=== PATIENT | female | born 1955 | race Caucasian/White ===

== ENCOUNTER 2017-01-29 16:47 | Emergency (ER) ==
[2017-01-29] MEDS ORDERED: DILAUDID 1 MG/ML SYRINGE IM STA ×2 (16:48→17:30)
[2017-01-29] MEDS ORDERED: PHENERGAN 25 MG/ML VIAL IM STA (16:49)
[2017-01-29 17:13] VITALS: BP 134/78; TEMP 97.5; BMI 29.9
[2017-01-29] MEDS ORDERED: ATIVAN IM STA (17:19)
--- NOTE | 2017-01-29 17:43 | ED.PDOC ---
General ED Provider: Dr. MAURO MEDLEY Chief Complaint: Non-specific Complaint Stated Complaint: HISTORY OF TRIGAMINAL NEUROALGIA Time Seen by Physician: 17:00 (HAS THE SAME PAIN BEFORE ) Mode of Arrival: Walk-In Information Source: Patient Exam Limitations: No limitations Primary Care Provider: LORETA TERRELL Nursing and Triage Documentation Reviewed and Agree: Yes Neurological Complaint Exam - Weakness Complaint/Exam Last Known Well: LEFT SIDED JAW PAIN Onset: Sudden Duration: THIS AFTERNOON Symptoms Are: Still present Timing: Constant Episodes Lasting: Hours Initial Severity: Severe Current Severity: Severe Aggravating: Reports: None Alleviating: Reports: None Associated Signs and Symptoms: Denies: Nausea, Vomiting, Diaphoresis, Tinnitus, Chest pain, Short of air, Palpitations, Unsteady gait, GI blood loss, Visual changes, Decreased oral intake, Change in medication, Change in diet, OTC meds, Loss of balance Related History: Similar episode Cardiac Risk Factors: Reports: Hypertension, Diabetes CVA Risk Factors: Reports: Diabetes, Hypertension JVD Present: No Carotid Bruit Present: No Glascow Coma Scale (see protocol): 15 Nystagmus Present: No Gag Reflex Present: No Meningeal Signs Positive: No Focal Weakness: Present: None Focal Sensory Loss: Present: None Gait: Normal Review of Systems - Review Of Systems Constitutional: Reports: No symptoms Eyes: Reports: No symptoms Ears, Nose, Mouth, Throat: Reports: Mouth pain (LEFT JAW PAIN) Respiratory: Reports: No symptoms Cardiac: Reports: No symptoms GI: Reports: No symptoms : Reports: No symptoms Musculoskeletal: Reports: No symptoms Skin: Reports: No symptoms Neurological: Reports: No symptoms Endocrine: Reports: No symptoms Hematologic/Lymphatic: Reports: No symptoms All Other Systems: Reviewed and Negative Past Medical History - Past Medical History Previously Healthy: No Endocrine: Reports: DM 2, Dyslipidemia Cardiovascular: Reports: None Respiratory: Reports: None Hematological: Reports: None Gastrointestinal: Reports: None Genitourinary: Reports: None Neuro/Psych: Reports: None Musculoskeletal: Reports: None Cancer: Reports: None Last Menstrual Period: none - Surgical History General Surgical History: Reports: None - Family History Family History: Reports: None - Social History Smoking Status: Current every day smoker Hx Substance Use: No Alcohol Screening: None Physical Exam - Physical Exam Appearance: Well-appearing, No pain distress, Well-nourished Eyes: VANGIE, EOMI, Conjunctiva clear ENT: Ears normal, Nose normal, Oropharynx normal Respiratory: Airway patent, Breath sounds clear, Breath sounds equal, Respirations nonlabored Cardiovascular: RRR, Pulses normal, No rub, No murmur GI/: Soft, Nontender, No masses, Bowel sounds normal, No Organomegaly Musculoskeletal: Normal strength, ROM intact, No edema, No calf tenderness Skin: Warm, Dry, Normal color Neurological: Sensation intact, Motor intact, Reflexes intact, Cranial nerves intact, Alert, Oriented Psychiatric: Affect appropriate, Mood appropriate Critical Care Note - Critical Care Note Total Time (mins): 0 Course - Course Orders, Labs, Meds: Orders Category Date Time Status Hydromorphone HCl [Dilaudid 1 mg/ml Syringe] MEDS 01/29/17 16:48 Discontinued 1 mg IM ONCE STA Hydromorphone HCl [Dilaudid 1 mg/ml Syringe] MEDS 01/29/17 17:30 Discontinued 1 mg IM ONCE STA Lorazepam Inj [Ativan] MEDS 01/29/17 17:19 Discontinued 1 mg IM ONCE STA Promethazine HCl [Phenergan 25 mg/ml Vial] MEDS 01/29/17 16:49 Discontinued 25 mg IM ONCE STA Medications Discontinued Medications Generic Name Dose Route Start Last Admin Trade Name Freq PRN Reason Stop Dose Admin Hydromorphone HCl 1 mg 01/29/17 16:48 01/29/17 16:59 Dilaudid 1 Mg/Ml Syringe IM 01/29/17 16:49 1 mg ONCE STA Administration Hydromorphone HCl 1 mg 01/29/17 17:30 01/29/17 17:35 Dilaudid 1 Mg/Ml Syringe IM 01/29/17 17:31 1 mg ONCE STA Administration Lorazepam 1 mg 01/29/17 17:19 01/29/17 17:38 Ativan IM 01/29/17 17:20 Not Given ONCE STA Promethazine HCl 25 mg 01/29/17 16:49 01/29/17 17:00 Phenergan 25 Mg/Ml Vial IM 01/29/17 16:50 25 mg ONCE STA Administration Vital Signs: Temp Pulse Resp BP Pulse Ox 01/29/17 16:47 97.5 F L 120 H 20 134/78 95 Departure - Departure Time of Disposition: 18:00 Disposition: HOME SELF-CARE 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 Instructions: Trigeminal Neuralgia (ED), Atypical Facial Pain (ED) Condition: Good Pt referred to PMD for follow-up: No Allergies/Adverse Reactions: Allergies metoclopramide HCl [From Reglan] Adverse Reaction (Verified 01/29/17 16:54) ondansetron HCl [From Zofran (as hydrochloride)] Adverse Reaction (Verified 05/10 16:54) Penicillins Adverse Reaction (Verified 01/29/17 16:54) prochlorperazine edisylate [From Compazine] Adverse Reaction (Verified 01/29/17 16:54) prochlorperazine maleate [From Compazine] Adverse Reaction (Verified 01/29/17 16 :54) [id number] Reductase Inhibitor Adverse Reaction (Verified 01/29/17 16:54) Home Medications: Ambulatory Orders Alprazolam [Xanax] 1 mg PO BID PRN 02/05/14 Duloxetine HCl [Cymbalta] 60 mg PO DAILY 02/05/14 Esomeprazole Magnesium [Nexium] 40 mg PO DAILY 02/05/14 Fenofibric Acid (Choline) [Trilipix] 135 mg PO DAILY 02/05/14 Hydrocodone Bit/Acetaminophen [Laurens 7.5-325] 1 tab PO TID PRN 02/05/14 Lisinopril [Zestril] 5 mg PO DAILY 02/05/14 Escitalopram Oxalate [Lexapro] 20 mg PO DAILY 07/13/14 Mirabegron [Myrbetriq] 25 mg PO 02/12/15 Umeclidinium Brm/Vilanterol Tr [Anoro Ellipta 62.5-25 Mcg INH] 02/12/15 Hydrocodone/Acetaminophen [Laurens 5-325 Tablet] 1 each PO Q6HR PRN #12 tablet 05/10
== END 2017-01-29 18:21 | disposition home or self-care (01) ==
LOC: ED 16:47
DX: G50.0 Trigeminal neuralgia (principal); I10 Essential (primary) hypertension; E11.9 Type 2 diabetes mellitus without complications; F17.210 Nicotine dependence, cigarettes, uncomplicated
CPT/HCPCS: 96372; 99283

== ENCOUNTER 2017-10-11 17:13 | Outpatient (CLI) ==
[2017-10-11 17:22] LABS: BASOPHILS % (AUTO) 0.3 % (0.0-3.0); EOSINOPHILS # (AUTO) 0.1 K/ul (0.0-0.7); EOSINOPHILS % (AUTO) 1.4 % (0.0-7.0); HEMATOCRIT 40.2 % (37.0-47.0); HEMOGLOBIN 13.2 g/dl (12.0-16.0); IMMATURE GRANULOCYTE % (AUTO) 0.2 % (0.0-5.0); LYMPHOCYTES # (AUTO) 2.1 K/uL (0.60-3.4); LYMPHOCYTES % (AUTO) 35.3 (10.0-50.0); MEAN CORPUSCULAR HEMOGLOBIN 31.3 pg (27.0-31.0); MEAN CORPUSCULAR HGB CONC 32.8 (31.8-35.4); MEAN CORPUSCULAR VOLUME 95.3 fl (81.0-99.0); MONOCYTES # (AUTO) 0.4 K/uL (0.4-2.0); MONOCYTES % (AUTO) 6.2 (0-10); NEUTROPHILS # (AUTO) 3.3 K/ul (2.0-6.9); NEUTROPHILS % (AUTO) 56.6; PLATELET COUNT 225 10^3/uL (140-440); RED BLOOD COUNT 4.22 10^6/ul (4.20-5.40); WHITE BLOOD COUNT 5.83 K/ul (4.6-10.2)
[2017-10-11 17:54] LABS: ALBUMIN 3.9 g/dL (3.4-5.0); ALBUMIN/GLOBULIN RATIO 0.98; ANION GAP 13.9; BILIRUBIN,TOTAL 0.4 mg/dL (0.00-1.20); BUN/CREATININE RATIO 11.11; CALCIUM 9.9 mg/dL (8.2-10.2); CHOL/HDL RATIO 3.5 (4.5-5.5); CREATININE 0.72 mg/dL (0.60-1.30); POTASSIUM 3.9 mmol/L (3.5-5.10); TOTAL PROTEIN 7.9 g/dL (5.8-8.1)
== END 2017-10-11 17:14 | disposition home or self-care (01) ==
LOC: LAB 17:13
PROVIDERS: ATTEND Emergency Medicine
DX: E78.5 Hyperlipidemia, unspecified (principal); E11.9 Type 2 diabetes mellitus without complications; I10 Essential (primary) hypertension; G50.0 Trigeminal neuralgia
CPT/HCPCS: 36415; 80053; 80061; 83036; 84443; 85025